=== PATIENT | male | born 1985 | race Two or more races ===

== ENCOUNTER 2016-10-02 23:15 | Emergency (ER) | payer BC, OTHER ==
[2016-10-02] MEDS ORDERED: ONDANSETRON HCL INJ/PF 4 MG/2 ML SDV IV ONE (23:26)
[2016-10-02] MEDS ORDERED: HYDROMORPHONE HCL INJ/PF 2 MG/ML AMPULE IV ONE ×2 (23:26→23:47)
[2016-10-02] MEDS ORDERED: CEFAZOLIN 2 GM/D5W RTU 50 ML IV ONE (23:27)
[2016-10-02] MEDS ORDERED: DIPH/PERTUSS(ACELL)/TETANUS VAC/PF 0.5 ML SYR (>=10YO) IM ONE (23:28)
[2016-10-02] MEDS ORDERED: LIDOCAINE 1%/EPINEPHRINE INJ 20 ML VIAL INJ ONE (23:47)
--- NOTE | 2016-10-03 00:05 | RADIOLOGY REPORT (SQ) ---
EXAM DESCRIPTION: FOREARM RIGHT COMPLETED DATE/TIME: 10/02/2016 11:51 pm REASON FOR STUDY: Pain with injury COMPARISON: None. NUMBER OF VIEWS: Two views. TECHNIQUE: Two radiographic images acquired of the right forearm, including elbow and wrist in at le ast one projection. LIMITATIONS: None. FINDINGS: MINERALIZATION: Normal. BONES: No acute fracture. No worrisome bone lesions. SOFT TISSUES: Large soft tissue defect in the proximal forearm. No radiopaque foreign body. OTHER: No other significant finding. IMPRESSION: LARGE SOFT TISSUE DEFECT. NO FOREIGN BODY. NO ACUTE BONY FINDINGS. TECHNICAL DOCUMENTATION: JOB ID: [id number] [employer]- All Rights Reserved
[2016-10-03] MEDS ORDERED: HYDROCODONE/ACETAMINOPHEN 5-325 MG 6 TAB/DSPK PO PRN (00:44)
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
[2016-10-03 01:21] VITALS: BP 151/99
== END 2016-10-03 01:22 | disposition home or self-care (01) ==
LOC: ER 23:15
PROC: 0HQDXZZ Repair Right Lower Arm Skin, External Approach (ICD-10-PCS; principal; 2016-10-02)
DX: S51.811A Laceration without foreign body of right forearm, initial encounter (principal); F17.210 Nicotine dependence, cigarettes, uncomplicated; V03.10XA Pedestrian on foot injured in collision with car, pick-up truck or van in traffic accident, initial encounter; Y92.008 Other place in unspecified non-institutional (private) residence as the place of occurrence of the external cause; Z23 Encounter for immunization
CPT/HCPCS: 99284; 90471; 96375; 96365; 73090; 90715; 12034; J1170; J2405; J0690

== ENCOUNTER 2016-10-04 18:23 | Emergency (ER) | payer BC, OTHER ==
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
[2016-10-04 22:29] VITALS: BP 149/89
== END 2016-10-04 22:27 | disposition home or self-care (01) ==
LOC: ER 18:23
DX: F10.129 Alcohol abuse with intoxication, unspecified (principal); S51.811D Laceration without foreign body of right forearm, subsequent encounter; V09.9XXD Pedestrian injured in unspecified transport accident, subsequent encounter
CPT/HCPCS: 82962; 99284

== ENCOUNTER 2016-10-14 12:41 | Day surgery (SDC) | payer BC, OTHER ==
[2016-10-10 13:07] LABS: ABSOLUTE EOSINOPHILS # (AUTO) 0.9 10^3/uL (0.0-0.6); ABSOLUTE LYMPHOCYTES (AUTO) 1.9 10^3/uL (0.5-4.7); ABSOLUTE MONOCYTES (AUTO) 0.8 10^3/uL (0.1-1.4); ABSOLUTE NEUT (AUTO) 8.6 10^3/uL (1.7-8.2); BASOPHILS % (AUTO) 0.4 % (0-2); EOSINOPHILS % (AUTO) 7.2 % (0-6); HEMATOCRIT 43.7 % (37.9-51.0); HEMOGLOBIN 14.4 g/dL (13.5-17.0); HGB HCT DIFFERENCE -0.5; LYMPHOCYTES % (AUTO) 15.7 % (13-45); MEAN CORPUSCULAR HEMOGLOBIN 28.6 pg (27.0-33.4); MEAN CORPUSCULAR VOLUME 87 fl (80-97); MONOCYTES % (AUTO) 6.8 % (3-13); RED BLOOD COUNT 5.05 10^6/uL (4.35-5.55); RED CELL DISTRIBUTION WIDTH 14.3 % (11.5-14.0); SEGMENTED NEUTROPHILS % (AUTO) 69.9 % (42-78); WHITE BLOOD COUNT 12.3 10^3/uL (4.0-10.5)
[2016-10-10 13:07] LABS: APPEARANCE,URINE CLEAR; BILIRUBIN,URINE NEGATIVE (NEGATIVE); GLUCOSE, URINE NEGATIVE (NEGATIVE); KETONES,URINE NEGATIVE (NEGATIVE); LEUKOCYTE ESTERASE,URINE NEGATIVE (NEGATIVE); NITRITE,URINE NEGATIVE (NEGATIVE); PROTEIN,URINE NEGATIVE (NEGATIVE); URINE SPECIFIC GRAVITY 1.003; UROBILINOGEN,URINE NEGATIVE mg/dL (<2.0)
[2016-10-10 13:37] LABS: ANION GAP 13 (5-19); BLOOD UREA NITROGEN 9 mg/dL (7-20); CALCIUM 9.4 mg/dL (8.4-10.2); CARBON DIOXIDE 24 mmol/L (22-30); CHLORIDE 105 mmol/L (98-107); CREATININE RESULT 0.79 mg/dL (0.52-1.25); GLUCOSE 76 mg/dL (75-110); POTASSIUM 4.9 mmol/L (3.6-5.0); SODIUM 141.8 mmol/L (137-145)
[~2016-10-14 12:41] MED LIST: CEFAZOLIN 2 GM/D5W RTU 2 GM/50 ML RTUPB IV PRN; GLYCOPYRROLATE INJ 0.4 MG/2 ML VIAL ONE; LACTATED RINGERS 1000 ML IV PRN; LIDOCAINE 0.5% INJ-PF (5 MG/ML) 50 ML SDV SUBCUT PRN; LIDOCAINE 2% INJ-PF (20 MG/ML) 10 ML AMPUL ONE; METOCLOPRAMIDE HCL INJ/PF 10 MG/2 ML SDV ONE; ONDANSETRON HCL INJ/PF 4 MG/2 ML SDV ONE; ROCURONIUM BROMIDE INJ 50 MG/5 ML VIAL IV ONE; SUCCINYLCHOLINE CHLORIDE INJ 200 MG/10 ML VIAL ONE
[2016-10-14] MEDS ORDERED: BUPIVACAINE HCL 0.5 % INJ/PF 30 ML SDV ONE (13:44)
[2016-10-14 14:11] LABS: URINE BARBITURATES SCREEN NEGATIVE; URINE METHADONE SCREEN NEGATIVE; URINE OPIATES LOW NEGATIVE; URINE PHENCYCLIDINE SCREEN NEGATIVE
[2016-10-14] MEDS ORDERED: IPRATROPIUM/ALBUTEROL 0.5-2.5 MG/3 ML AMPUL NEB ONE (14:51)
[2016-10-14] MEDS ORDERED: ALBUTEROL SULFATE 0.083% NEB 2.5 MG/3 ML AMPUL NEB ONE (14:52)
[2016-10-14] MEDS ORDERED: FENTANYL CITRATE INJ/PF 250 MCG/5 ML AMPULE ONE ×2 (15:16)
[2016-10-14] MEDS ORDERED: IBUPROFEN INJ 800 MG/8 ML VIAL IV ONE (15:17)
[2016-10-14] MEDS ORDERED: MORPHINE SULFATE 10 MG/ML INJ ONE (15:17)
[2016-10-14] MEDS ORDERED: PROPOFOL INJ 200 MG/20 ML VIAL IV ONE (15:17)
[2016-10-14] MEDS ORDERED: MIDAZOLAM 2 MG/2 ML INJ ONE (15:17)
[2016-10-14] MEDS ORDERED: RINGERS SOLUTION,LACTATED 1,000 ML IV ONE (15:45)
[2016-10-14] MEDS ORDERED: FENTANYL CITRATE INJ/PF 100 MCG/2 ML AMPUL IV PRN ×3 (16:15)
[2016-10-14] MEDS ORDERED: MEPERIDINE HCL/PF INJ 25 MG/1 ML DISP.SYRIN IV PRN (16:15)
[2016-10-14] MEDS ORDERED: PROMETHAZINE HCL INJ 25 MG/1 ML VIAL IV PRN ×2 (16:15)
[2016-10-14] MEDS ORDERED: MORPHINE SULFATE 10 MG/ML INJ IV PRN (16:15)
[2016-10-14] MEDS ORDERED: DIPHENHYDRAMINE HCL 50 MG/ML VIAL IV PRN (16:15)
[2016-10-14] MEDS ORDERED: OXYCODONE-ACETAMINOPHEN 5-325 MG TABLET PO PRN ×3 (16:15→18:15)
--- NOTE | 2016-10-14 18:03 | PDOC DISCHARGE SUMMARY ---
Discharge Summary (SDC) - Discharge Final Diagnosis: Right Forearm Laceration w/ Posterior Intraosseous Nerve Laceration Date of Surgery: 10/14/16 Discharge Date: 10/14/16 Condition: Good Treatment or Instructions: Schedule Follow Up w/ Dr. Peter Souza @ [facility] for Surgery to be seen in 10-14 days or as scheduled [place]: [place]: [place]: May remove dressing on postop day #3, keep incision covered and dry. Ice and elevate May begin finger range of motion attempting to make full fist. Stool softener of choice when on pain medication. Prescriptions: Oxycodone HCl/Acetaminophen [Percocet 5-325 mg Tablet] 1 - 2 tab PO ASDIR PRN # 45 tablet PRN Reason: Referrals: EARL BLACK MD [Primary Care Provider] - Discharge Diet: As Tolerated Respiratory Treatments at Home: Deep Breathing/Coughing Discharge Activity: No Lifting Over 10 Pounds, No Lifting/Push/Pulling Report the Following to Your Physician Immediately: Fever over 101 Degrees, Unusual Bleeding, Redness, Swelling, Warmth, Increased Soreness
[2016-10-14] MEDS ORDERED: ONDANSETRON HCL INJ/PF 4 MG/2 ML SDV IV PRN (18:15)
[2016-10-14] MEDS ORDERED: HYDROMORPHONE HCL INJ/PF 2 MG/ML AMPULE IV PRN (18:15)
[2016-10-14] MEDS ORDERED: KETOROLAC TROMETHAMINE INJ/PF 30 MG/1 ML SDV IV PRN (18:15)
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
[2016-10-14] MEDS: HYDROMORPHONE HCL INJ/PF 2 MG/ML AMPULE ONE ×2 (18:20→18:40)
[2016-10-14] MEDS ORDERED: ACETAMINOPHEN 100 ML IV ONE (18:41)
[2016-10-14 20:50] VITALS: BP 127/84
== END 2016-10-14 20:50 | disposition home or self-care (01) ==
LOC: OROUT 12:41 → 2N 20:00 → OROUT 20:50
PROVIDERS: ATTEND Orthopaedic Surgery
PROC: 0KQ90ZZ Repair Right Lower Arm and Wrist Muscle, Open Approach (ICD-10-PCS; 2016-10-14)
PROC: 01Q60ZZ Repair Radial Nerve, Open Approach (ICD-10-PCS; principal; 2016-10-14 14:30)
DX: S44.21XA Injury of radial nerve at upper arm level, right arm, initial encounter (principal); S56.901A Unspecified injury of unspecified muscles, fascia and tendons at forearm level, right arm, initial encounter; S51.801A Unspecified open wound of right forearm, initial encounter; V03.99XA Pedestrian with other conveyance injured in collision with car, pick-up truck or van, unspecified whether traffic or nontraffic accident, initial encounter; F41.9 Anxiety disorder, unspecified; F17.210 Nicotine dependence, cigarettes, uncomplicated; F32.9 Major depressive disorder, single episode, unspecified
CPT/HCPCS: 64910; 36415; 85025; 80048; 81001; 80307; 24342; J2250; J3490 ×2; J3010; J2765; J2270; J1170; J0330; J2405; J2704; J0690; J0131; J1741; 1810; J7620